=== PATIENT | female | born 1945 | race Caucasian/White ===

== ENCOUNTER → 2022-12-18 | Outpatient (CLI) | payer OTHER ==
[~2022-12-18] MED LIST: BENA25TA4 PO; BUPR1TAB53 PO; HYDR-3719 PO; MECL1TAB31 PO; NEXI20CA PO; REGL5TAB2 PO; XANA0.25 PO; ZOFR4TAB16 PO
== END ==
LOC: M RAD 10:44
PROVIDERS: ATTEND Physician Assistant Surgical
DX: M19.012 Primary osteoarthritis, left shoulder (principal); M19.011 Primary osteoarthritis, right shoulder; M77.8 Other enthesopathies, not elsewhere classified; S46.912A Strain of unspecified muscle, fascia and tendon at shoulder and upper arm level, left arm, initial encounter; X58.XXXA Exposure to other specified factors, initial encounter; Y92.9 Unspecified place or not applicable; Y93.9 Activity, unspecified; Y99.8 Other external cause status

== ENCOUNTER → 2023-02-04 | Outpatient (REF) | payer OTHER ==
[2023-02-04 19:21] LABS: BLOOD UREA NITROGEN 14 MG/DL (9-23); CREATININE FOR GFR 0.84 MG/DL (0.55-1.30); GLOMERULAR FILTRATION RATE > 60.0 (>39)
== END ==
LOC: M LAB REF 17:21
PROVIDERS: ATTEND Physical Medicine & Rehabilitation
DX: M47.892 Other spondylosis, cervical region (principal)

== ENCOUNTER → 2023-02-15 | Outpatient (CLI) | payer OTHER | LOC: M RAD 13:13 | PROVIDERS: ATTEND Orthopaedic Surgery | DX: M54.50 Low back pain, unspecified (principal); Z98.1 Arthrodesis status; M43.18 Spondylolisthesis, sacral and sacrococcygeal region ==

== ENCOUNTER → 2023-03-09 | Outpatient (CLI) | payer OTHER | LOC: M PLAIMG 14:20 | PROVIDERS: ATTEND Physical Medicine & Rehabilitation | DX: M50.30 Other cervical disc degeneration, unspecified cervical region (principal); M47.892 Other spondylosis, cervical region; R20.2 Paresthesia of skin; M19.012 Primary osteoarthritis, left shoulder; M19.011 Primary osteoarthritis, right shoulder ==

== ENCOUNTER → 2023-03-09 | Outpatient (CLI) | payer OTHER ==
[~2023-03-09] MED LIST changes: +ISOVUE-300 61% 100ML VIAL ONE; +LIDOCAINE 1% MDV 20ML VIAL ONE; +methylPREDNISolone SUSP 40MG/ML 1ML VIAL (DEPO MEDROL) ONE
== END ==
LOC: M PLAIMG 14:18
PROVIDERS: ATTEND Physician Assistant Surgical
DX: M19.012 Primary osteoarthritis, left shoulder (principal); M19.011 Primary osteoarthritis, right shoulder
CPT/HCPCS: 20610; 77002; J1030; Q9967

== ENCOUNTER 2023-12-02 15:06 | Outpatient (CLI) | payer OTHER ==
[~2023-12-02] VITALS: Ht 157.5 cm; Wt 73.3 kg
[~2023-12-02 15:06] MED LIST changes: +ACET650T15 PO; +FLUO40CA PO; +GABA-1171 PO; +GUAN1TAB16 PO; -ISOVUE-300 61% 100ML VIAL ONE; -LIDOCAINE 1% MDV 20ML VIAL ONE; +MECL-209 PO; -MECL1TAB31 PO; +OXYB-54 PO; +instaflex PO; -methylPREDNISolone SUSP 40MG/ML 1ML VIAL (DEPO MEDROL) ONE
[2023-12-02 16:00] VITALS: BP 121/61; O2SAT 98
[2023-12-02] MEDS: IRON SUCROSE 200 MG in NS 100 ML OVER 1 HR IV ONE (16:16)
[2023-12-02] MEDS: dexAMETHasone 20MG/5ML VIAL IV ONE (16:29)
[2023-12-02] MEDS: diphenhydrAMINE 25MG CAP PO ONE (16:29)
[2023-12-02] MEDS: ACETAMINOPHEN TAB 650MG DOSE (2X325MG) PO ONE (16:29)
[2023-12-02 17:20] VITALS: BP 135/61; O2SAT 98
== END 2023-12-02 17:20 ==
LOC: M INFU 15:06
PROVIDERS: ATTEND Internal Medicine Medical Oncology
DX: E61.1 Iron deficiency (principal)
CPT/HCPCS: 96365; J1756

== ENCOUNTER 2023-12-09 16:00 | Outpatient (CLI) | payer OTHER ==
[~2023-12-09] VITALS: Ht 160 cm; Wt 70.5 kg
[2023-12-09 16:00] VITALS: BP 147/67; O2SAT 100
[2023-12-09] MEDS: IRON SUCROSE 200 MG in NS 100 ML OVER 1 HR IV ONE (16:18)
[2023-12-09] MEDS ORDERED: ACETAMINOPHEN TAB 650MG DOSE (2X325MG) PO ONE (16:30)
[2023-12-09] MEDS ORDERED: diphenhydrAMINE 25MG CAP PO ONE (16:30)
[2023-12-09] MEDS ORDERED: dexAMETHasone 20MG/5ML VIAL IV ONE (16:30)
[2023-12-09 17:24] VITALS: BP 132/74; O2SAT 98
[2023-12-13] MEDS ORDERED: NEXI20CA PO (10:06)
== END 2023-12-09 17:27 ==
LOC: M INFU 16:00
PROVIDERS: ATTEND Internal Medicine Medical Oncology
DX: E61.1 Iron deficiency (principal)
CPT/HCPCS: 96365; J1756

== ENCOUNTER 2023-12-23 16:50 | Outpatient (CLI) | payer OTHER ==
[~2023-12-23] VITALS: Ht 157.5 cm; Wt 73.3 kg
[2023-12-23 16:55] VITALS: BP 123/65; O2SAT 98
[2023-12-23] MEDS: IRON SUCROSE 200 MG in NS 100 ML OVER 1 HR IV ONE (16:56)
[2023-12-23] MEDS: ACETAMINOPHEN TAB 650MG DOSE (2X325MG) PO ONE (16:57)
[2023-12-23] MEDS: dexAMETHasone 20MG/5ML VIAL IV ONE (16:57)
[2023-12-23] MEDS: diphenhydrAMINE 25MG CAP PO ONE (16:57)
[2023-12-23 17:41] VITALS: BP 152/77; O2SAT 95
== END 2023-12-23 18:00 ==
LOC: M INFU 16:50
PROVIDERS: ATTEND Internal Medicine Medical Oncology
DX: E61.1 Iron deficiency (principal)
CPT/HCPCS: 96365; J1756

== ENCOUNTER 2024-01-30 08:08 | Day surgery (SDC) | payer OTHER ==
[~2024-01-30] VITALS: Ht 160 cm; Wt 68.0 kg
[~2024-01-30 08:08] MED LIST changes: +propofoL 200 MG/20 ML VIAL As Ordered ONE
[2024-01-30] MEDS ORDERED: LIDOCAINE 2% 100MG/5ML SDV (FOR ANES.) As Ordered ONE (08:24)
[2024-01-30] MEDS: NS 1,000 ML IV ONE (08:27)
[2024-01-30 10:04] VITALS: BP 151/70; O2SAT 97
== END 2024-01-30 10:06 | disposition home or self-care (01) ==
LOC: M OPP 08:08
PROVIDERS: ATTEND Internal Medicine Gastroenterology
DX: D50.9 Iron deficiency anemia, unspecified (principal); D12.3 Benign neoplasm of transverse colon; K22.70 Barrett's esophagus without dysplasia; Z12.89 Encounter for screening for malignant neoplasm of other sites; D12.2 Benign neoplasm of ascending colon; D12.0 Benign neoplasm of cecum; K57.30 Diverticulosis of large intestine without perforation or abscess without bleeding; K44.9 Diaphragmatic hernia without obstruction or gangrene; K21.9 Gastro-esophageal reflux disease without esophagitis; G47.30 Sleep apnea, unspecified; Z79.899 Other long term (current) drug therapy